=== PATIENT | male | born 1960 | race Caucasian/White ===

== ENCOUNTER 2021-08-30 20:55 | Observation (INO) | payer BC ==
[2021-08-30] MEDS ORDERED: Ondansetron PF 4 MG/2 ML Vial IVP PRN (20:59)
[2021-08-30] MEDS ORDERED: Acetaminophen 325 MG TAB PO PRN (20:59)
[2021-08-30] MEDS ORDERED: Calcium Carbonate 500 MG ChewTAB PO PRN (20:59)
[2021-08-30] MEDS ORDERED: Zolpidem Tartrate 5 MG TAB PO PRN (20:59)
[2021-08-30] MEDS ORDERED: Senokot S 8.6-50 MG TAB PO PRN (20:59)
[2021-08-30] MEDS ORDERED: Nitroglycerin 0.4 MG TAB (25 Tab Bottle) SL PRN (21:00)
[2021-08-30 21:22] VITALS: BMI 26.1
[2021-08-30] MEDS ORDERED: Sodium Chloride 0.9% 500 ML IV SCH (21:30)
[2021-08-30] MEDS ORDERED: Atorvastatin Calcium 40 MG TAB PO SCH (21:30)
[2021-08-31 05:39] LABS: Anion Gap 12 mmol/L (10-20); BUN (Urea Nitrogen) 15 mg/dL (8.4-25.7); Calc. Creatinine Clearance 94 mL/min (70-130); Calcium 8.9 mg/dL (7.8-10.44); Carbon Dioxide 25 mmol/L (22-29); Chloride 108 mmol/L (98-107); Glucose 92 mg/dL (70-105); Potassium 4.2 mmol/L (3.5-5.1); Sodium 141 mmol/L (136-145)
[2021-08-31] MEDS ORDERED: Ezetimibe 10 MG TAB PO SCH (09:00)
[2021-08-31] MEDS ORDERED: Enoxaparin Sodium 40 MG/0.4 ML SYRINGE SC SCH (09:00)
[2021-08-31] MEDS ORDERED: Aspirin Chewable 81 MG TAB PO SCH (09:00)
[2021-08-31] MEDS ORDERED: Losartan Potassium 50 MG TAB PO SCH (09:00)
[2021-08-31] MEDS ORDERED: Clopidogrel Bisulfate 75 MG TAB PO SCH (09:00)
[2021-08-31 16:22] VITALS: BP 144/94; TEMP 97.5
[2021-08-31] MEDS ORDERED: Atorvastatin Calcium 40 MG TAB PO SCH (21:00)
== END 2021-08-31 18:35 | disposition home or self-care (01) ==
LOC: CSHTELE 20:55
PROVIDERS: ADMIT Student in an Organized Health Care Education/Training Program; ATTEND Family Medicine
DX: I95.1 Orthostatic hypotension (principal); R00.1 Bradycardia, unspecified; I25.118 Atherosclerotic heart disease of native coronary artery with other forms of angina pectoris; Z95.5 Presence of coronary angioplasty implant and graft; I13.10 Hypertensive heart and chronic kidney disease without heart failure, with stage 1 through stage 4 chronic kidney disease, or unspecified chronic kidney disease; N18.2 Chronic kidney disease, stage 2 (mild); E78.2 Mixed hyperlipidemia; Z82.49 Family history of ischemic heart disease and other diseases of the circulatory system; Z79.82 Long term (current) use of aspirin; Z79.899 Other long term (current) drug therapy; Z79.02 Long term (current) use of antithrombotics/antiplatelets
CPT/HCPCS: 36415; 80048; 84443; 84484; 93306; 96372; G0378; J1650; J7030